=== PATIENT | female | born 1980 | race Caucasian/White ===

== ENCOUNTER 2017-02-03 06:03 | Inpatient (IN) | payer MEDICAID ==
[2017-02-03] VITALS (24 sets, daily range): BP systolic 104–140; BP diastolic 54–72; PULSE 57–89; RESP 9–20; Ht 157.5 cm; Wt 70.9 kg
[~2017-02-03] VITALS: Ht 157.5 cm; Wt 70.9 kg
[~2017-02-03 06:03] MED LIST: [UNRECOGNIZED DRUG - REMARK]
[2017-02-03] MEDS ORDERED: CEFAZOLIN 2 GM/50 ML (PMX) 50 ML IVPB SCH (06:30)
[2017-02-03] MEDS ORDERED: NEOSTIGMINE 3 MG/3 ML SYRINGE ONE (07:53)
[2017-02-03] MEDS ORDERED: PROPOFOL 20 ML ONE (07:53)
[2017-02-03] MEDS ORDERED: GLYCOPYRROLATE 0.4 MG INJ ONE (07:53)
[2017-02-03] MEDS ORDERED: CEFAZOLIN 1 GM INJ ONE (07:53)
[2017-02-03] MEDS ORDERED: ROCURONIUM 50 MG INJ ONE (07:53)
[2017-02-03] MEDS ORDERED: MIDAZOLAM 1 MG/ML 2 ML INJ ONE (07:55)
[2017-02-03] MEDS ORDERED: ONDANSETRON 4 MG INJ ONE (07:55)
[2017-02-03] MEDS ORDERED: DEXAMETHASONE 4 MG/ML 1 ML INJ ONE (07:55)
[2017-02-03] MEDS ORDERED: FENTAnyl 50 MCG/ML VIAL ONE ×2 (07:55→09:01)
[2017-02-03] MEDS: SOD CHLORIDE 0.9% 1,000 ML IV SCH ×2 (08:25→19:50)
[2017-02-03] MEDS ORDERED: DIPHENHYDRAMINE 50 MG INJ IV PRN (09:00)
[2017-02-03] MEDS ORDERED: ONDANSETRON 4 MG INJ IV PRN ×2 (09:00→10:00)
[2017-02-03] MEDS ORDERED: HYDROmorphONE (0.2 MG/ML) 10ML SYG IV PRN ×2 (09:00)
[2017-02-03] MEDS ORDERED: EPHEDrine SULFATE 50 MG/5 ML SYG IV PRN (09:00)
[2017-02-03] MEDS ORDERED: hydrALAzine 20 MG INJ IV PRN (09:00)
[2017-02-03] MEDS ORDERED: IPRATROPIUM (NEB) 0.5 MG/2.5 ML AMP HHN PRN (09:00)
[2017-02-03] MEDS ORDERED: ALBUTEROL 0.083% (NEB) 2.5 MG/3 ML AMP HHN PRN (09:00)
[2017-02-03] MEDS ORDERED: MEPERIDINE 25 MG INJ IV PRN (09:00)
[2017-02-03] MEDS ORDERED: LABETALOL HCL 20MG INJ IV PRN (09:00)
[2017-02-03] MEDS ORDERED: FENTAnyl 50 MCG/ML VIAL IV PRN ×3 (09:00)
[2017-02-03] MEDS ORDERED: TRIMETHOBENZAMIDE 100 MG/ML VIAL IM PRN (09:00)
[2017-02-03] MEDS ORDERED: OXYCODONE/ACETAMINOPHEN (5/325) TAB PO PRN ×2 (09:00)
[2017-02-03] MEDS ORDERED: MIDAZOLAM 1 MG/ML 2 ML INJ IV PRN (09:00)
--- NOTE | 2017-02-03 09:36 | SIPON ---
Date/Time of Note Date/Time of Note DATE: 02/03/17 TIME: 09:34 Operative Report Preoperative Diagnosis Invasive cancer left breast Postoperative Diagnosis Same Operation/Procedure Performed Left modified radical mastectomy Surgeon see signature line speech correction assistant Dr Gandara Second assist: ISAAC GARCIA MD Anesthesia: general Estimated blood loss: 10 - 50 ml's Transfusion Required none Specimen Left breast and axillary contents Grafts/Implants none Complications none KATHLEEN CHENG MD Feb 03, 2017 09:36
[2017-02-03] MEDS ORDERED: SUGAMMADEX SODIUM 200 MG/2 ML VIAL IV ONE (09:57)
[2017-02-03] MEDS: HYDROmorphONE (0.2 MG/ML) 10ML SYG IV PRN ×5 (10:29→12:28)
[2017-02-03] MEDS: D5W-0.45 NACL + KCL 20 MEQ 1,000 ML IV SCH ×3 (13:28→23:11)
[2017-02-03] MEDS: morphine 2 MG INJ IV PRN ×3 (14:41→20:04)
--- NOTE | 2017-02-03 15:29 | HP ---
DATE OF ADMISSION: 02/03/2017 HISTORY OF PRESENT ILLNESS: The patient is an unfortunate 37-year-old female who presented with lef t breast mass. The patient underwent mammogram, which revealed suspicious masses at 3 and 6 o'clock . Subsequent biopsy was positive for moderately differentiated breast cancer. The patient was eval uated by Dr. Doan in surgical consultation. The patient was brought to the hospital and underwent left modified radical mastectomy. Postoperatively, the patient experienced moderate pain and patien t is admitted for further evaluation and management. PAST MEDICAL HISTORY: Patient denies any chronic medical conditions. PAST SURGICAL HISTORY: Patient is status post laparoscopy and exploratory laparotomy with left salp ingectomy due to a ruptured left fallopian ectopic in 08/2011. FAMILY HISTORY: Negative for any breast or ovarian cancer. SOCIAL HISTORY: Patient lives at home with her and child. The patient denies any tobacco u se, denies any alcohol use, denies any illicit drug use. ALLERGIES: NO KNOWN ALLERGIES. HOME MEDICATIONS: No active prescriptions. REVIEW OF SYSTEMS: A 12-point review of systems is negative unless what mentioned in the HPI. PHYSICAL ASSESSMENT: GENERAL: Well-developed, well-nourished female currently is awake, alert. VITAL SIGNS: Temperature is 98.8, pulse is 79, blood pressure 123/66, respiratory rate 14, oxygen s aturation 96% on room air. HEENT: Head is atraumatic, normocephalic. Pupils equal, round, reactive to light and accommodation . Oral mucosa is pink and moist. NECK: Supple, no cervical lymphadenopathy, no thyromegaly. CHEST: Lungs clear bilaterally. There are no rhonchi, wheezes, rales noted. CARDIOVASCULAR: Normal S1, S2. No murmurs, gallops, clicks or rubs noted. ABDOMEN: Round, soft, nondistended. Bowel sounds present. EXTREMITIES: No edema, clubbing, cyanosis. Pulses equal bilaterally, 2+. SKIN: The patient is status post left modified radical mastectomy with a dry, clean and intact ches t dressing and left axillary CHIOMA. NEUROLOGIC: Patient is awake, alert and oriented, no focal deficits noted. Motor strength 5/5 in a ll extremities. LABORATORY DATA: Prior to surgery, CBC: White blood cells 5.3, red blood cells 4.5, hemoglobin 14, hematocrit 41, platelets 296. Chemistry: Sodium is 138, potassium 3.9, chloride 100, carbon dioxi de 23, calcium is 9.3, glucose is 96, BUN is 13, creatinine 0.68. INR is 1.0. ASSESSMENT AND PLAN: Multicentric cancer of the left breast status post left modified radical maste ctomy. We will continue IV fluids, morphine and Tylenol p.r.n. for pain and Zofran p.r.n. for nause a. Check CBC and BMP tomorrow. Sequential compression device for deep venous thrombosis prophylaxi s. Further recommendations based on clinical course. Plan of care discussed with Dr. Callahan. Dictated By: MELLO ELLIS BAR ATTENDANT for YASMEEN CALLAHAN MD SR/NTS Conf#: [id number] DID#: [id number]
[2017-02-03] MEDS ORDERED: METOCLOPRAMIDE 10 MG INJ IV PRN (22:55)
[2017-02-03] MEDS: ACETAMINOPHEN 1000MG/100ML IV 100 ML IVPB PRN (23:11)
[2017-02-04 00:36] VITALS: BP 122/73; RESP 20
[2017-02-04 04:00] VITALS: BP 118/62; PULSE 72; RESP 17
[2017-02-04 05:23] LABS: BASOPHILS % 0.1 % (0.0-2.0); EOSINOPHILS % 0.1 % (0.0-7.0); HEMATOCRIT 34.2 % (37.0-47.0); LYMPHOCYTES # 1.5 10^3/ul (0.8-2.9); LYMPHOCYTES % 14.1 % (15.0-51.0); MEAN CORPUSCULAR HEMOGLOBIN 30.8 pg (29.0-33.0); MEAN CORPUSCULAR HGB CONC 35.1 g/dl (32.0-37.0); MEAN CORPUSCULAR VOLUME 87.7 fl (82.0-101.0); MEAN PLATELET VOLUME 9.8 fl (7.4-10.4); MONOCYTE # 0.9 10^3/ul (0.3-0.9); MONOCYTES % 8.7 % (0.0-11.0); NEUTROPHILS % 76.5 % (39.0-77.0); PLATELET COUNT 243 10^3/UL (140-415); WHITE BLOOD COUNT 10.4 10^3/ul (4.8-10.8)
[2017-02-04 06:06] LABS: CALCIUM 8.4 mg/dl (8.4-10.2); CREATININE 0.63 mg/dl (0.44-1.00)
[2017-02-04] MEDS ORDERED: HYDROCODONE/APAP (5/325) TAB NGT PRN (07:00)
[2017-02-04] MEDS: ACETAMINOPHEN 1000MG/100ML IV 100 ML IVPB PRN ×2 (07:31→16:11)
[2017-02-04 08:31] VITALS: BP 124/68; RESP 18
--- NOTE | 2017-02-04 13:34 | PN ---
DATE: 02/04/2017 CHIEF COMPLAINT: Postop day #1, status post left modified radical mastectomy. SUBJECTIVE: No complaint. OBJECTIVE: GENERAL: Alert, awake, oriented. VITAL SIGNS: Temperature 98.2, heart rate 72, respirations 18, blood pressure 124/68, saturation 97 % room air. LABORATORY: WBC 10,400, hemoglobin 12. Chemistry: Sodium, potassium, BUN, creatinine within juana l limits. I's and O's: Luciano-Quiñones drains, one has 90 mL, the other one 100 mL, total 190 mL sin ce operation. The color is serosanguineous. Dressing is intact. ASSESSMENT: A 37-year-old female status post left modified radical mastectomy. The patient is stab le completely. She can be discharged. The instruction was given to the patient for the care of the Luciano-Quiñones drains, how to drain them, how to measure them and to record them, so that when she g oes back to Dr. Cheng's office, he can make a decision for removal. The patient to call Dr. Cheng's office on Monday and make an appointment for followup per the schedule. Prescription for pain will be given. Dictated By: ALISON GIBSON MD PS/NTS Conf#: [id number] DID#: [id number] CC: KATHLEEN CHENG MD;*EndCC*
[2017-02-04 14:21] VITALS: BP 128/70; RESP 18
--- NOTE | 2017-02-04 14:21 | PDOCDIS ---
Discharge Instructions CONDITION Patient Condition: Stable HOME CARE INSTRUCTIONS: Diet Instructions: ACTIVITY: Activity Restrictions: Slowly Increase Activity Rest between Activity Avoid heavy lifting Do not Drive Do not operate Machinery Do not operate Power Tool Avoid Heavy Housework Bathing Restrictions: Sponge Bath FOLLOW UP/APPOINTMENTS Follow-up Plan FU with Primary MD 1 week FU with Surgery as recommended Call 911 or got to the nearest hospital if symptoms get worse- patient verbalized understanding of dc instructions Dw Dr Doe/ staff/ patient ELIZA ADAMS Feb 04, 2017 14:21
[2017-02-04] MEDS ORDERED: HYDR-3498 PO (14:25)
[2017-02-04] MEDS ORDERED: DOCU-144 PO (14:25)
--- NOTE | 2017-02-13 15:55 | OPR ---
DATE OF OPERATION: 02/03/2017 PREOPERATIVE DIAGNOSIS: Invasive cancer, left breast. POSTOPERATIVE DIAGNOSIS: Invasive cancer, left breast. PROCEDURE: Left modified radical mastectomy. ANESTHESIOLOGIST: SURGEON: Dr. Franki MD. FREELANCE COURT REPORTER: Dr. Gandara. INDICATIONS FOR PROCEDURE: The patient is an unfortunate 37-year-old female who presented with mult icentric left breast cancer. She was counseled as to need for mastectomy due to the multicentric na ture of her disease. She consented and was scheduled for surgery. DESCRIPTION OF PROCEDURE: The patient was brought to the operating theater, placed under general en dotracheal tube anesthesia. The left breast and axillary region was prepped and draped in usual can rile fashion. An elliptical incision was demarcated with marking pen including the nipple areolar c omplex and a significant amount of the skin overlying the breast. It was carried out with 15 blade scalpel. Subcutaneous tissue was dissected with cautery. The skin edges were then elevated with Al lis Bertie clamps and skin flaps were created in a sequential fashion using cautery, first superiorly to the clavicle, then medially to the sternal border, inferiorly to the inframammary fold and later ally until the latissimus dorsi muscle was identified throughout its course. Mastectomy then took p lace from medial to lateral using cautery. At the border of the pectoralis major muscle, the pector jf minor muscle was identified. The clavipectoral fascia was incised. Upon entering the axilla, there was obvious metastatic disease. With blunt dissection along the chest wall, the long thoracic nerve was identified and kept out of harm's way. More superiorly, the axillary vein was identified and dissected from medial to lateral. Thoracodorsal neurovascular bundle was then identified and d issected throughout its course. It was kept out of harm's way. Significant flora tissue between th e long thoracic nerve and thoracodorsal nerve was then harvested using the LigaSure device. Final c onnective tissue attachments to the latissimus dorsi muscle were then transected with cautery. The specimen was removed and oriented and sent for permanent pathologic analysis. The wound was irrigat ed. Minimal residual bleeding was controlled with cautery. Two #10 flat Luciano-Quiñones drains were then brought through the left mid axillary line and one was cut to size and laid within the axilla, the other was laid over the pectoralis major muscle. Both were secured in place with 2-0 nylon sutu res. Final skin approximation then took place with nancy. The patient tolerated the procedure we ll. The estimated blood loss was 30 mL. There were no complications and the patient was transporte d in stable condition to the recovery room where circumferential compression dressing was applied. Dictated By: KATHLEEN PHILLIPS/EMILIANA Conf#: [id number] DID#: [id number]
== END 2017-02-04 17:15 | disposition home or self-care (01) | DRG 583 ==
LOC: SDS 06:03 → REC 09:50 → MS1 12:47
PROVIDERS: ADMIT Surgery Surgical Oncology; ATTEND Surgery Surgical Oncology
PROC: 0HTU0ZZ Resection of Left Breast, Open Approach (ICD-10-PCS; principal; 2017-02-03 08:00)
DX: C50.912 Malignant neoplasm of unspecified site of left female breast (principal)
CPT/HCPCS: 80048; 85025; 88307; J0131; J0690; J1100; J1170; J2175; J2250; J2270; J2405; J2710; J2765; J3010; J3480; J7030

== ENCOUNTER → 2017-02-22 | Outpatient (CLI) | END | disposition home or self-care (01) ==

== ENCOUNTER 2017-03-16 07:11 | Day surgery (SDC) | END 2017-03-16 13:45 | disposition home or self-care (01) ==